=== PATIENT | female | born 1980 | race Caucasian/White ===

== ENCOUNTER 2017-07-14 12:35 | Emergency (ER) | payer SELFPAY ==
[~2017-07-14] VITALS: Ht 167.6 cm; Wt 56.0 kg
[2017-07-14 12:39] VITALS: BP 130/63; PULSE 80; RESP 17; TEMP 98.3; O2SAT 100
--- NOTE | 2017-07-14 13:41 | RADRPT ---
EXAM DATE/TIME: 07/14/2017 12:53 [facility] COMPARISON: No previous studies available for comparison. INDICATIONS : Fall. Left olecranon pain and laceration/abrasion. MEDICAL HISTORY : None. SURGICAL HISTORY : None. ENCOUNTER: Initial ACUITY: 2 days PAIN SCORE: 7/10 LOCATION: Left olecranon FINDINGS: Soft tissue swelling is noted overlying the olecranon process of the ulna. No acute fracture or dislo cation is noted. No elbow joint effusion is noted. CONCLUSION: 1. Soft tissue swelling overlying the olecranon process of the proximal ulna. 2. No acute fracture or dislocation. Daniel Rivas MD on July 14, 2017 at 13:37 Board Certified Radiologist. This report was verified electronically.
--- NOTE | 2017-07-14 14:27 | PD ---
HPI Chief Complaint: Injury Time Seen by Provider: 14:23 Travel History International Travel<30 days: No Contact w/Intl Traveler<30days: No Traveled to known affect area: No History of Present Illness HPI 36-year-old female presents to the emergency department with complaint of left elbow pain after slipping on a wet surface and falling 2 days ago. Says she landed on both of her elbows and her left is worse than right. Reports abrasions to both elbows. Denies being up-to-date on tetanus vaccination. Denies hitting her head or loss of consciousness. Denies neck pain or back pain. Denies chest pain, shortness breath, abdominal pain. Vomited once this morning. Denies fevers. Reports decreased range of motion secondary to pain and swelling of the left elbow. Denies paresthesias, loss of sensation, decreased strength to the affected extremity. Pain is worse with movement, extension of the elbow, palpation of the area. Better with flexion of the elbow and at rest. Has tried taking Goody powders and ibuprofen for symptom management. Rates pain 01/12. No primary care provider. No known allergies. Denies significant past medical history. Has no other medical complaints. No other modifying factors or associated signs and symptoms. PFSH Past Medical History ?: Not Social History Tobacco Use: No Allergies-Medications (Allergen,Severity, Reaction): Coded Allergies: No Known Allergies (Unverified , 07/14/17) Reported Meds & Prescriptions Reported Meds & Active Scripts Active Mupirocin Topical (Mupirocin) 2 % Oint 1 Applic TOPICAL BID PRN Ibuprofen 800 Mg Tab 800 Mg PO Q6HR PRN Tramadol (Tramadol HCl) 50 Mg Tab 50 Mg PO Q4H PRN Bactrim DS (Sulfamethoxazole-Trimethoprim) 800-160 Mg Tab 1 Tab PO BID 10 Days Review of Systems Except as stated in HPI: all other systems reviewed are Neg Physical Exam Narrative GENERAL: Well-nourished, well-developed female patient, in no acute distress SKIN: Warm and dry. HEAD: Atraumatic. Normocephalic. EYES: Pupils equal and round. No scleral icterus. No injection or drainage. ENT: Mucosa pink and moist. Airway patent. NECK: Trachea midline. CARDIOVASCULAR: Regular rate. RESPIRATORY: No accessory muscle use. GASTROINTESTINAL: Fall. MUSCULOSKELETAL: Left elbow with full range of motion; with edema and erythema ; elbow wound with purulent drainage noted and surrounding erythema; no lymphangitis noted; with tenderness on palpation; with full health underwriter strength; sensory intact; 2+ radial pulse. Left Upper extremity supple and nontense with 2+ radial pulse and sensory intact. No obvious deformities. No clubbing. No cyanosis. NEUROLOGICAL: Awake and alert. Oriented 3. No obvious cranial nerve deficits. Motor grossly within normal limits. Normal speech. PSYCHIATRIC: Appropriate mood and affect; insight and judgment normal. Data Data Last Documented VS Vital Signs Date Time Temp Pulse Resp B/P (MAP) Pulse Ox O2 Delivery O2 Flow Rate FiO2 07/14/17 12:39 98.3 80 17 130/63 (85) 100 Orders Orders Elbow, Complete (4 Vws) (07/14/17 ) Wound Culture And Gram Stain (07/14/17 14:37) Wound Care (07/14/17 14:37) Tetanus/Diphtheria Tox Adult (Tetanus/Di (07/14/17 14:45) Sulfamet-Trimeth Ds 800-160 Mg (Bactrim (07/14/17 14:45) Acetamin-Hydrocod 325-5 Mg (Wheeler 5-325 (07/14/17 14:45) Sling Cradle Arm (07/14/17 ) Ed Discharge Order (07/14/17 15:05) MDM Medical Decision Making Medical Screen Exam Complete: Yes Emergency Medical Condition: Yes Medical Record Reviewed: Yes Differential Diagnosis Elbow fracture, elbow contusion, wound, wound infection, abrasion Narrative Course 36-year-old female with left elbow injury after mechanical slip and fall 2 days ago. Left elbow x-ray was ordered in triage. On examination of the left elbow she has a abrasion with purulent drainage and surrounding erythema consistent with wound infection. Patient is afebrile and nontoxic-appearing. Denies fever. Reports vomiting one time this morning. No lymphangitis noted. No signs of septic joint. Area of erythema marked with surgical marker. Wheeler, Bactrim, wound culture, tetanus ordered. 1425: Left elbow x-ray concluded : soft tissue swelling overlying the olecranon process of the proximal ulna; No acute fracture or dislocation. Discussed x-ray findings with the patient. Arm sling provided for support. Discussed wound infection and wound care. Tramadol, ibuprofen, mupirocin, Bactrim prescribed for home. Instructed patient to follow up with primary care provider. Patient verbalizes understanding and agreement with treatment plan. Patient is medically cleared and stable for discharge. Discussed reasons to return to the emergency department. Patient agrees with treatment plan. The patients vital signs are stable and the patient is stable for outpatient follow- up and treatment. Patient discharged home, stable and in no acute distress. Diagnosis Primary Impression: Left elbow contusion Qualified Codes: S50.02XA - Contusion of left elbow, initial encounter Additional Impressions: Wound infection Abrasion of left elbow Qualified Codes: S50.312A - Abrasion of left elbow, initial encounter Referrals: [facility] Primary Care Physician Patient Instructions: Cellulitis (ED), General Instructions Departure Forms: Tests/Procedures, Work Release Enter return to work date: Jul 16, 2017 Additional Instructions: Ibuprofen or Tylenol as directed and as needed for pain and inflammation Rest and immobilize the affected extremity; increase activity as tolerated Arm sling as needed for support Apply ice to affected area Avoid elbow pressure by not leaning or placing your weight on your elbow to rise from a lying or sitting position Follow-up with primary care provider Follow-up with orthopedics as needed Return to the emergency department immediately with worsening of symptoms Med/Other Pt SpecificInfo: Prescription(s) given Scripts Mupirocin Topical (Mupirocin Topical) 2 % Oint 1 APPLIC TOPICAL BID Y for WOUND CARE, #1 TUBE 0 Refills Prov: Shira LeyvaP 07/14/17 Ibuprofen (Ibuprofen) 800 Mg Tab 800 MG PO Q6HR Y for PAIN, #30 TAB 0 Refills Prov: Shira LeyvaP 07/14/17 Tramadol (Tramadol) 50 Mg Tab 50 MG PO Q4H Y for PAIN, #8 TAB 0 Refills Prov: Shira LeyvaP 07/14/17 Sulfamethoxazole-Trimethoprim (Bactrim DS) 800-160 Mg Tab 1 TAB PO BID for Infection for 10 Days, #20 TAB 0 Refills Prov: Shira LeyvaP 07/14/17 Disposition: 01 DISCHARGE HOME Condition: Stable Shira Leyav Jul 14, 2017 14:27
[2017-07-14] MEDS ORDERED: TRAM50TA PO (14:43)
[2017-07-14] MEDS ORDERED: BACT800T5 PO (14:43)
[2017-07-14] MEDS ORDERED: IBUP1TAB7 PO (14:43)
[2017-07-14] MEDS ORDERED: MUPI2OIN TOPICAL (14:43)
[2017-07-14] MEDS ORDERED: ACETAMINOPHEN/HYDROcodone 325 MG/5 MG TAB PO ONE (14:45)
[2017-07-14] MEDS ORDERED: SULFAMETHOXAZOLE-TRIMETHOPRIM DS 800-160 MG TAB PO ONE (14:45)
[2017-07-14] MEDS ORDERED: TETANUS/DIPHTHERIA TOXOID ADULT 0.5 ML VIAL IM ONE (14:45)
== END 2017-07-14 15:09 | disposition home or self-care (01) ==
LOC: NEPD 12:35
DX: S50.02XA Contusion of left elbow, initial encounter (principal); S50.312A Abrasion of left elbow, initial encounter; L08.9 Local infection of the skin and subcutaneous tissue, unspecified; A49.02 Methicillin resistant Staphylococcus aureus infection, unspecified site; Z23 Encounter for immunization; W01.0XXA Fall on same level from slipping, tripping and stumbling without subsequent striking against object, initial encounter
CPT/HCPCS: 73080; 86403; 87070; 87186; 87205; 90471; 90714

== ENCOUNTER 2017-08-16 15:40 | Emergency (ER) | payer MEDICAID, OTHER ==
[~2017-08-16] VITALS: Ht 167.6 cm; Wt 55.1 kg
[~2017-08-16 15:40] MED LIST: BACT800T5 PO; IBUP1TAB7 PO; MUPI2OIN TOPICAL; TRAM50TA PO
[2017-08-16 15:45] VITALS: BP 116/66; PULSE 73; RESP 16; TEMP 98.1; O2SAT 97
[2017-08-16] MEDS ORDERED: CEPHALEXIN MONOHYDRATE 500 MG CAP PO ONE (16:00)
[2017-08-16] MEDS ORDERED: LEVOFLOXACIN 250 MG TAB PO ONE (16:00)
[2017-08-16] MEDS ORDERED: ACETAMINOPHEN/HYDROcodone 325 MG/5 MG TAB PO ONE (16:00)
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
[2017-08-16] MEDS ORDERED: LEVO250T7 PO (16:05)
[2017-08-16] MEDS ORDERED: CEPH-460 PO (16:05)
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
[2017-08-16] MEDS ORDERED: TRAM50TA PO (17:10)
[2017-08-16] MEDS ORDERED: HYDR-3516 PO (17:25)
== END 2017-08-16 17:30 | disposition home or self-care (01) ==
LOC: PHEFT 15:40
DX: S91.312A Laceration without foreign body, left foot, initial encounter (principal); W25.XXXA Contact with sharp glass, initial encounter; Z87.442 Personal history of urinary calculi
CPT/HCPCS: 12001; 73630; 99283; E0113